=== PATIENT | female | born 1970 | race Two or more races ===

== ENCOUNTER 2025-04-20 11:36 | Emergency (ER) | payer OTHER ==
[~2025-04-20] VITALS: Ht 167.6 cm; Wt 82.0 kg
[2025-04-20] MEDS ORDERED: GUAI600T78 PO (12:54)
[2025-04-20] MEDS ORDERED: LORA-1126 PO (12:54)
[2025-04-20] MEDS ORDERED: FLUT1SPR5 (12:54)
[2025-04-20] MEDS ORDERED: PROM1SOL4 PO (12:54)
--- NOTE | 2025-04-20 12:55 | ED.PDOC ---
SOB-HPI HPI Comments 54-year-old female that presents to the ED for chief complaint of flu-like symptoms. Patient states that she has been having cough, runny nose and congestion for the past two days with the associated dry throat and headache. Patient states she has has associated sick contact of friend. Patient otherwise states that she has been taking Tylenol with last dose at 10:30 p.m. last night. Patient in the ED has noted blood pressure of 159/101 with otherwise stable vitals. Patient otherwise denies any other symptoms. 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 EDITORIAL SPECIALIST Hx Family History Family History: Reviewed,noncontributory to illness Social History Smoker: Non-Smoker Alcohol: Denies ETOH Use Drugs: Denies Drug Use Lives In: Home Constitutional: denies: chills, diaphoresis, fatigue, fever, malaise, sweats, weakness, others EENTM: reports: nasal discharge, nose congestion; denies: blurred vision, double vision, ear bleeding, ear discharge, ear drainage, ear pain, ear ringing, eye pain, eye redness, hearing loss, mouth pain, mouth swelling, nose bleeding, nose pain, photophobia, tearing, throat pain, throat swelling, voice changes, others Respiratory: reports: cough; denies: hemoptysis, orthopnea, SOB at rest, shortness of breath, SOB with excertion, stridor, wheezing, others Cardiovascular: denies: chest pain, dizzy spells, diaphoresis, Dyspnea on exertion, edema, irregular heart beat, left arm pain, lightheadedness, palpitations, PND, syncope, others Gastrointestinal: denies: abdomen distended, abdominal pain, blood streaked bowels, constipated, diarrhea, dysphagia, difficulty swallowing, hematemesis, melena, nausea, poor appetite, poor fluid intake, rectal bleeding, rectal pain, vomiting, others Genitourinary: denies: abnormal vagina bleeding, burning, dyspareunia, dysuria, flank pain, frequency, hematuria, incontinence, pain, , vagina discharge, urgency, others Neurological: denies: dizziness, fainting, headache, left sided numbness, left sided weakness, numbness, paresthesia, pre-existing deficit, right sided numbness, right sided weakness, seizure, speech problems, tingling, tremors, weakness, others Musculoskeletal: denies: back pain, gout, joint pain, joint swelling, muscle pain, muscle stiffness, neck pain, others Integumetry: denies: bruises, change in color, change in hair/nails, dryness, laceration, lesions, lumps, rash, wounds, others Allergic/Immunocompromised: denies: Difficulty Healing, Frequent Infections, Hives, Itching, others Hematologic/Lymphatic: denies: anemia, blood clots, easy bleeding, easy bruising, swollen glands, others Endocrine: denies: excessive hunger, excessive sweating, excessive thirst, excessive urination, flushing, intolerance to cold, intolerance to heat, unexplained weight gain, unexplained weight loss, others Psychiatric: denies: anxiety, bipolar disorder, depression, hopeless, panic disorder, schizophrenia, sleepless, suicidal, others All Other Systems: Reviewed and Negative Physical Exam General Appearance: No Apparent Distress, Normal HEENT: Normal ENT Inspection, Pharynx Normal, TMs Normal Neck: Full Range of Motion, Non-Tender, Normal, Normal Inspection Respiratory: Chest Non-Tender, Lungs Clear, No Accessory Muscle Use, No Respiratory Distress, Normal Breath Sounds Cardiovascular: No Edema, No JVD, No Murmur, No Gallop, Normal Peripheral Pulses, Regular Rate/Rhythm Breast Exam: Deferred Gastrointestinal: No Organomegaly, Non Tender, No Pulsatile Mass, Normal Bowel Sounds, Soft Genitalia: Deferred Pelvic: Deferred Rectal: Deferred Extremities: No calf tenderness, Normal capillary refill, Normal inspection, Normal range of motion, Non-tender, No pedal edema Musculoskeletal : Apperance: Normal Neurologic: Alert, branch chief II-XII nml as Tested, No Motor Deficits, Normal Affect, Normal Mood, No Sensory Deficits Cerebellar Function: Normal Reflexes: Normal Skin: Dry, Normal Color, Warm Lymphatic: No Adenopathy Was a procedure done? Was a procedure done?: No Differential Dx Differential Diagnosis: Asthma, Bronchitis, Pneumonia, Respiratory Distress, Pharyngitis, URI Comments Viral syndrome, influenza a and B, COVID X-Ray, Labs, Meds, VS Vital Signs Date Time Temp Pulse Resp B/P (MAP) Pulse Ox O2 Delivery O2 Flow Rate FiO2 11/3/25 11:39 98.1 90 15 159/101 98 98.1 X-Ray, Labs, Meds, VS Comment Patient arrives alert and oriented, ABC's intact, afebrile, vital signs stable, saturating well in room air Additional MDM Review of External, Non-ED records: External records reviewed. Discussion with independent historian (EMS, family) history obtained from the patient/parents (if applicable) at bedside Chronic conditions affecting care: None Social determinants of health affecting care: None Consideration of admission (observation or admission): I considered escalation of care to admission for this patient, however given the reassuring workup, the patient is safe for outpatient management. Discussion with the Radiology: No Tests considered but not performed: Prescription medication considered but not given: 12 lead EKG interpretation: Time of 1ST Reevaluation: 13:30 Reevaluation 1ST: Unchanged Patient Education/Counseling: Diagnosis, Treatment Family Education/Counseling: No Family Present SEPSIS Sepsis Screen Date sepsis recognized/suspect: Apr 20, 2025 Time Sepsis recognized/suspect: 114 Recent Procedure: No On Antibiotic Therapy: No Respiratory Rate >20: No Heart Rate >90: No Temp<36 C (96.8 F) or >38.3 C: No SBP <90 or MAP <65 mmHG: No New Acute Mental Status Change: No Is the patient on CPAP, BIPAP,: No Vital Signs Date Time Temp Pulse Resp B/P (MAP) Pulse Ox O2 Delivery O2 Flow Rate FiO2 04/20/25 11:39 98.1 90 15 159/101 98 98.1 Departure 1 Departure Time of Disposition: 12:52 Impression: Primary Impression: Viral syndrome Disposition: HOME / SELF CARE / HOMELESS Condition: Stable e-Prescriptions Guaifenesin (Mucinex) 600 Mg Tab 1 TAB PO BID for 7 Days, #14 TAB 0 Refills Prov: GRACIELA SALAS KAIAKO [place]URA [place] MAORI 04/20/25 Promethazine-Dm (Promethazine Dm 6.25-15 mg/5Ml) 1 Amy Amy 5 ML PO TID PRN for 10 Days, #150 ML 0 Refills Prov: GRACIELA SALAS KAIAKO [place] MAORI 04/20/25 Loratadine (Loratadine) 10 Mg Tab 10 MG PO DAILY for 30 Days, #30 TAB 0 Refills Prov: GRACIELA SALAS KAIAKO [place] MAORI 04/20/25 Fluticasone Propionate (Nasal) (Flonase Allergy Relief) 50 Mcg/Act Spr 1 SPR NA DAILY for 30 Days, #30 ML 0 Refills Prov: GRACIELA SALAS NP 04/20/25 Discharged With: Self Critical Care Note Critical Care Time?: No Stability Stability form required: No Heart Score Heart Score: Heart Score Response (Comments) Value History N/A 0 EKG N/A 0 Age N/A 0 Risk Factors N/A 0 Troponin N/A 0 Total 0 I personally scribed for GRACIELA SALAS NP ([email or web address]) on 04/20/25 at 12:55. Electronically submitted by Isabelle Albert [email or web address]). I personally scribed for GRACIELA SALAS NP ([email or web address]) on 04/20/25 at 12:56. Electronically submitted by Isabelle Albert [email or web address]). GRACIELA SALAS NP Apr 20, 2025 12:55
[2025-04-20 13:13] VITALS: BP 138/91; PULSE 82; RESP 18; TEMP 98.4; O2SAT 97
== END 2025-04-20 13:16 | disposition home or self-care (01) ==
LOC: ER 11:36
DX: B34.9 Viral infection, unspecified (principal)

== ENCOUNTER 2025-05-20 20:52 | Emergency (ER) | payer OTHER ==
[~2025-05-20] VITALS: Ht 167.6 cm; Wt 80.0 kg
[~2025-05-20 20:52] MED LIST: FLUT1SPR5; GUAI600T78 PO; LORA-1126 PO; PROM1SOL4 PO
--- NOTE | 2025-05-20 21:37 | DVH ---
EXAM: XY L 4TH FINGER XRAY INDICATION: left 4th finger pain TECHNIQUE: 3 views of the left 4th finger COMPARISON: None FINDINGS/IMPRESSION: No radiographic evidence of an acute osseous abnormality. There is no acute fracture, osseous malalignment, or aggressive focal osseous lesion. Severe joint space loss of the 3rd and 4th distal interphalangeal joints correlate for primarily osteoarthrosis.
[2025-05-20 21:54] VITALS: BP 126/86; PULSE 77; RESP 16; TEMP 98; O2SAT 100
[2025-05-20] MEDS ORDERED: IBUP-1456 PO (22:00)
--- NOTE | 2025-05-20 22:00 | ED.PDOC ---
Musculoskeletal HPI Comments 54-year-old female presents to ER with complaints of left 4th finger pain x1 day. Patient reports that she started experiencing pain/swelling and numbness/tingling to left 4th finger at 8:30 p.m. prior to arrival to ER s/p a "heavy lamp post" falling and landing on her left 4th finger. Denies use of medications for current symptoms and presents to ER ambulatory on arrival, with steady gait, in no distress. Denies left wrist pain or any further symptoms/complaints Chief Complaint: Upper Extremity Time Seen by MD: 20:57 Primary Care Provider: UNKNOWN Reviewed Notes: Nurses Notes, Medications, Allergies Allergies: Coded Allergies: Penicillins (Verified Allergy, Severe, 04/20/25) Home Meds Active Scripts Ibuprofen (Ibuprofen) 800 Mg Tab, 1 TAB PO TID PRN, #30 TAB 0 Refills Prov:KATHY SERRANO 05/20/25 Guaifenesin (Mucinex) 600 Mg Tab, 1 TAB PO BID for 7 Days, #14 TAB 0 Refills Prov:GRACIELA SALAS NP 04/20/25 Promethazine-Dm (Promethazine Dm 6.25-15 mg/5Ml) 1 Amy Amy, 5 ML PO TID PRN for 10 Days, #150 ML 0 Refills Prov:GRACIELA SALAS NP 04/20/25 Loratadine (Loratadine) 10 Mg Tab, 10 MG PO DAILY for 30 Days, #30 TAB 0 Refills Prov:GRACIELA SALAS NP 04/20/25 Fluticasone Propionate (Nasal) (Flonase Allergy Relief) 50 Mcg/Act Spr, 1 SPR NA DAILY for 30 Days, #30 ML 0 Refills Prov:GRACIELA SALAS NP 04/20/25 Information Source: Patient Mode of Arrival: Ambulatory Past Medical History PAST MEDICAL HISTORY: HTN Surgical History: Denies all surgeries 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 Family History Family History: Unknown Social History Smoker: Non-Smoker Alcohol: Denies ETOH Use Drugs: Denies Drug Use Lives In: Home Constitutional: denies: chills, diaphoresis, fatigue, fever, malaise, sweats, weakness, others EENTM: denies: blurred vision, double vision, ear bleeding, ear discharge, ear drainage, ear pain, ear ringing, eye pain, eye redness, hearing loss, mouth pain, mouth swelling, nasal discharge, nose bleeding, nose congestion, nose pain, photophobia, tearing, throat pain, throat swelling, voice changes, others Respiratory: denies: cough, hemoptysis, orthopnea, SOB at rest, shortness of breath, SOB with excertion, stridor, wheezing, others Cardiovascular: denies: chest pain, dizzy spells, diaphoresis, Dyspnea on exertion, edema, irregular heart beat, left arm pain, lightheadedness, palpitations, PND, syncope, others Gastrointestinal: denies: abdomen distended, abdominal pain, blood streaked bowels, constipated, diarrhea, dysphagia, difficulty swallowing, hematemesis, melena, nausea, poor appetite, poor fluid intake, rectal bleeding, rectal pain, vomiting, others Genitourinary: denies: abnormal vagina bleeding, burning, dyspareunia, dysuria, flank pain, frequency, hematuria, incontinence, pain, , vagina discharge, urgency, others Neurological: reports: others (As stated in HPI) Musculoskeletal: reports: others (As stated in HPI) Integumetry: reports: others (As stated in HPI) Allergic/Immunocompromised: denies: Difficulty Healing, Frequent Infections, Hives, Itching, others Hematologic/Lymphatic: denies: anemia, blood clots, easy bleeding, easy bruising, swollen glands, others Endocrine: denies: excessive hunger, excessive sweating, excessive thirst, excessive urination, flushing, intolerance to cold, intolerance to heat, unexplained weight gain, unexplained weight loss, others Psychiatric: denies: anxiety, bipolar disorder, depression, hopeless, panic disorder, schizophrenia, sleepless, suicidal, others Physical Exam General Appearance: No Apparent Distress HEENT: PERRL/EOMI Neck: Full Range of Motion, Non-Tender, Normal Respiratory: Chest Non-Tender, Lungs Clear, No Accessory Muscle Use, No Respiratory Distress, Normal Breath Sounds Cardiovascular: No Murmur, No Gallop, Regular Rate/Rhythm Breast Exam: Deferred Gastrointestinal: NOT DONE Genitalia: Deferred Pelvic: Deferred Rectal: Deferred Extremities: Normal capillary refill, Normal range of motion Musculoskeletal : Extremity Location: Finger 4 (TTP/mild swelling noted to left 4th finger. No deformity/further skin changes noted. No nailbed injury noted. Patient able to fully move all fingers of left hand. Pulses intact) Neurologic: Alert, No Motor Deficits, Normal Affect, Normal Mood, No Sensory Deficits Cerebellar Function: Normal Reflexes: Normal Skin: Dry, Normal Color, Warm Peripheral Pulses: 2+ Radial (R), 2+ Radial (L), 2+ Brachial (R), 2+ Brachial (L) Lymphatic: No Adenopathy Was a procedure done? Was a procedure done?: No Sedation Sedation?: No Differential Diagnosis EXT Differential Diagnosis: Fracture, Dislocation, Laceration, Neurovascular injury X-Ray, Labs, Meds, VS Vital Signs Date Time Temp Pulse Resp B/P (MAP) Pulse Ox O2 Delivery O2 Flow Rate FiO2 05/20/25 21:54 98.0 77 16 126/86 (99) 100 98.0 05/20/25 21:54 100 Room Air* 0 21 05/20/25 20:53 98.0 77 16 126/86 100 98.0 PATIENT: ERIK CRISOSTOMOCT: [id number]: [id number] : 1970 LOC: ER ROOM / BED: / AGE / SEX: 54 / F ADM STATUS: REG ER SERVICE 56 ORDERING PHYSICIAN: KATHY SERRANO PROCEDURE(s): LFIN4 - L 4TH FINGER XRAY REASON: left 4th finger pain ORDER NUMBER(s): [id number], ACCESSION NUMBER(s): [id number] EXAM: XY L 4TH FINGER XRAY INDICATION: left 4th finger pain TECHNIQUE: 3 views of the left 4th finger COMPARISON: None FINDINGS/IMPRESSION: No radiographic evidence of an acute osseous abnormality. There is no acute fracture, osseous malalignment, or aggressive focal osseous lesion. Severe joint space loss of the 3rd and 4th distal interphalangeal joints correlate for pr imarily osteoarthrosis. ATED BY: REHAN FRANCO MD DICTATED DATE/TIME: 05/20/252134 SIGNED BY: REHAN FRANCO MD SIGNED DATE/TIME: 05/20/252134 CC: Left 4th finger x-ray reviewed Advised on elevation and alternate ice on/off as needed for pain/swelling Sterling p.o. ordered Zofran 4 mg p.o. ordered Finger splint applied for comfort Patient neurovascularly intact and reported improvement in symptoms prior to discharge Advised to follow up with PCP in 1-2 days Patient verbalized understanding and agreeable with current plan of care Advised to return to ER immediately if symptoms worsen Images Reviewed?: Images reviewed and evaluated by me Time of 1ST Reevaluation: 21:24 Reevaluation 1ST: N/A Patient Education/Counseling: Diagnosis, Treatment, Prognosis, Need For Follow Up Family Education/Counseling: Diagnosis, Treatment, Prognosis, Need For Follow Up Departure 1 Departure Time of Disposition: 21:59 Impression: Primary Impression: Contusion of finger of left hand Qualified Codes: S60.042A - Contusion of left ring finger without damage to nail, initial encounter Disposition: HOME / SELF CARE / HOMELESS Condition: Stable e-Prescriptions Ibuprofen (Ibuprofen) 800 Mg Tab 1 TAB PO TID PRN, #30 TAB 0 Refills Prov: KATHY SERRANO 05/20/25 Discharged With: Other (daughter) Critical Care Note Critical Care Time?: No Stability Stability form required: No Heart Score Heart Score: Heart Score Response (Comments) Value History N/A 0 EKG N/A 0 Age N/A 0 Risk Factors N/A 0 Troponin N/A 0 Total 0 KATHY SERRANO May 20, 2025 22:00
[2025-05-20] MEDS: ONDANSETRON ODT 4 MG TAB PO ONE (22:09)
[2025-05-20] MEDS: HYDROcodone-ACET 5/325MG TAB PO ONE (22:09)
== END 2025-05-20 22:14 | disposition home or self-care (01) ==
LOC: ER 20:55
DX: S60.042A Contusion of left ring finger without damage to nail, initial encounter (principal); I10 Essential (primary) hypertension; Z88.0 Allergy status to penicillin; X58.XXXA Exposure to other specified factors, initial encounter; Y93.89 Activity, other specified; Y92.89 Other specified places as the place of occurrence of the external cause; Y99.8 Other external cause status
CPT/HCPCS: 29130; 73140; Q0162